=== PATIENT | female | born 1970 | race Caucasian/White ===

== ENCOUNTER 2023-07-19 00:25 | Emergency (ER) | payer OTHER ==
[2023-07-19] MEDS ORDERED: dexAMETHasone 10 MG/ML VIAL ONE (02:20)
[2023-07-19] MEDS ORDERED: METOCLOPRAMIDE 10 MG/2mL INJ ONE (02:20)
[2023-07-19] MEDS ORDERED: DIPHENHYDRAMINE 50 MG/ML VIAL ONE (02:20)
[2023-07-19] MEDS ORDERED: NA CHLORIDE 0.9% 50 ML ONE (02:21)
[2023-07-19] MEDS ORDERED: NA CHLORIDE 0.9% 1,000 ML ONE (02:21)
[2023-07-19 02:39] LABS: Absolute Basophils 0.1 K/uL (0-0.5); Absolute Lymphocytes (CBC) 1.6 K/uL (0.7-4.9); Absolute Monocytes 0.5 K/uL (0.1-1.3); Basophils % 0.6 % (0-1.3); Eosinophils % 0.1 % (0-4.4); Hematocrit 41.2 % (36.0-45.0); Hemoglobin 13.3 g/dL (12.0-15.0); Lymphocytes % 13.1 % (15.3-44.8); MCHC 32.4 g/dL (32.0-36.0); MCV 83.5 fL (80-100); MPV 8.2 fL (7.6-11.3); Monocytes % 4.3 % (3.3-12.3); Neutrophils % 81.9 % (41.7-73.7); Platelets 400 thou/uL (152-406); RBC Red Blood Cell Count 4.94 M/uL (3.86-4.86); Red Cell Distribution Width 14.5 % (12.1-15.2)
[2023-07-19 02:51] LABS: Anion Gap 9.3 mEq/L (5.0-15.0); Magnesium 2.3 mg/dL (1.6-2.4); Potassium 3.3 mEq/L (3.5-5.1); Troponin High Sensitivity 3.4 pg/mL (<58.9)
--- NOTE | 2023-07-19 04:37 | ER ---
Nurse's Notes [facility] Name: Christa Wise Age: 53 yrs Sex: Female : 1970 Arrival Date: 07/19/2023 Time: 00:25 Bed 17 Private MD: Diagnosis: Other headache syndrome;Acute HEADACHE, nausea and vomiting Presentation: 07/18 00:47 Chief complaint: Patient states: headache, high blood pressure, nausea with 2 episodes lg3 of vomiting. Tylenol and ibuprofen taken at 2300 with no relief. Coronavirus screen: Client denies travel out of the [place] in the last 14 days. At this time, the client does not indicate any symptoms associated with coronavirus-19. Ebola Screen: No symptoms or risks identified at this time. Initial Sepsis Screen: Does the patient meet any 2 criteria? No. Patient's initial sepsis screen is negative. Does the patient have a suspected source of infection? No. Patient's initial sepsis screen is negative. Risk Assessment: Do you want to hurt yourself or someone else? Patient reports no desire to harm self or others. Onset of symptoms was July 18, 2023. 00:47 Method Of Arrival: Ambulatory lg3 00:47 Acuity: ANN MARIE 3 lg3 Triage Assessment: 00:49 Headache History: Denies prior headaches. General: Appears in no apparent distress. lg3 uncomfortable, Behavior is calm, cooperative. Pain: Complains of pain in head Pain does not radiate. Pain currently is 10 out of 10 on a pain scale. Pain began 2 hours ago. Also complains of nausea, photophobia. EENT: No deficits noted. No signs and/or symptoms were reported regarding the EENT system. Neuro: No deficits noted. Chong Agitation-Sedation Scale (RASS): 0 - Alert and Calm Level of Consciousness is awake, alert, obeys commands, Oriented to person, place, time, situation, Reports headache that is the "worst ever". Cardiovascular: No deficits noted. Denies chest pain, shortness of breath, Heart tones S1 S2 present Capillary refill < 3 seconds Clubbing of nail beds is absent JVD is absent Patient's skin is warm and dry. Respiratory: No deficits noted. Airway is patent Respiratory effort is even, unlabored, Respiratory pattern is regular, symmetrical. GI: No deficits noted. Abdomen is round non-distended, obese, Reports nausea, vomiting. : No deficits noted. No signs and/or symptoms were reported regarding the genitourinary system. Derm: No deficits noted. No signs and/or symptoms reported regarding the dermatologic system. Skin is intact, is healthy with good turgor, Skin is dry, Skin is normal, Skin temperature is warm. Musculoskeletal: No deficits noted. No signs and/or symptoms reported regarding the musculoskeletal system. Circulation, motion, and sensation intact. Range of motion: intact in all extremities. 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 - Infectious Disease History:: Denies. - Social history:: Smoking status: Patient denies any tobacco usage or history of. Patient/guardian denies using alcohol, street drugs. Screenin:54 [facility] ED Fall Risk Assessment (Adult) History of falling in the last 3 months, lg3 including since admission No falls in past 3 months (0 pts) Confusion or Disorientation No (0 pts) Intoxicated or Sedated No (0 pts) Impaired Gait No (0 pts) Mobility Assist Device Used No (0 pt) Altered Elimination No (0 pt) Score/Fall Risk Level 0 - 2 = Low Risk Oriented to surroundings, Maintained a safe environment, Educated pt \\T\\ family on fall prevention, incl call for assistance when getting out of bed, Assessed \\T\\ reinforced patient's understanding of fall precautions. Abuse screen: Denies threats or abuse. Denies injuries from another. Nutritional screening: No deficits noted. Tuberculosis screening: No symptoms or risk factors identified. Assessment: 00:53 General: see triage assessment. Pain: Complains of pain in head Pain does not radiate. lg3 Pain currently is 10 out of 10 on a pain scale. Also complains of nausea, photophobia. 04:07 Reassessment: Patient and/or family updated on plan of care and expected duration. Pain vc1 level reassessed. Patient is alert, oriented x 3, equal unlabored respirations, skin warm/dry/pink. Patient states feeling better. Patient states symptoms have improved. 04:55 Reassessment: Patient appears in no apparent distress at this time. No changes from vc1 previously documented assessment. Patient and/or family updated on plan of care and expected duration. Pain level reassessed. Patient is alert, oriented x 3, equal unlabored respirations, skin warm/dry/pink. Vital Signs: 00:47 BP 166 / 90; Pulse 73; Resp 16 S; Temp 98(TE); Pulse Ox 97% on R/A; Weight 63.5 kg (R); lg3 Height 5 ft. 0 in. (R); Pain 10/10; 02:30 BP 156 / 89; Pulse 66; Resp 15; Pulse Ox 98% ; vc1 03:30 BP 140 / 74; Pulse 62; Resp 15; Pulse Ox 95% ; vc1 04:30 BP 136 / 79; Pulse 63; Resp 17; Pulse Ox 94% ; vc1 00:47 Body Mass Index 27.34 (63.50 kg, 152.4 cm) lg3 00:47 Pain Scale: Adult lg3 ED Course: 00:28 Patient arrived in ED. jj6 00:43 Maria Dolores Cheema FNP-C is PHCP. kb 00:43 Ge Castaneda MD is Attending Physician. kb 00:49 Triage completed. lg3 00:49 Arm band placed on right wrist. lg3 00:54 Patient taken to lobby, ambulatory, steady gait. lg3 00:54 Patient has correct armband on for positive identification. lg3 01:39 XRAY Chest (1 view) In Process Unspecified. EDMS 02:10 CT Head Brain wo Cont In Process Unspecified. EDMS 02:17 Allyn Crespo, RN is Primary Nurse. vc1 04:56 Provided Education on: dont drive with [employer]. vc1 04:56 No provider procedures requiring assistance completed. IV discontinued, intact, vc1 bleeding controlled, No redness/swelling at site. Pressure dressing applied. Administered Medications: 02:44 Drug: NS 0.9% IV 1000 ml IV at 1000 ml once Route: IV; Rate: 1000 ml; Site: right vc1 antecubital; 04:57 Follow up: IV Status: Completed infusion; IV Intake: 1000ml vc1 02:44 Drug: metoCLOPramide IVP 10 mg IVP once; over 1 to 2 minutes Route: IVP; Site: right vc1 antecubital; 04:14 Follow up: Response: No adverse reaction; Marked relief of symptoms vc1 02:44 Drug: diphenhydrAMINE IVP 12.5 mg IVP once Route: IVP; Site: right antecubital; vc1 04:14 Follow up: Response: No adverse reaction; Marked relief of symptoms vc1 02:45 Drug: Decadron - Dexamethasone IVP 10 mg IVP once Route: IVP; Site: right antecubital; vc1 04:14 Follow up: Response: No adverse reaction; Marked relief of symptoms vc1 Medication: 04:14 VIS not applicable for this client. vc1 Intake: 04:57 IV: 1000ml; Total: 1000ml. vc1 Outcome: 04:36 Discharge ordered by . sp4 04:56 Discharged to home ambulatory, with family, vc1 04:56 Condition: good 04:56 Discharge instructions given to patient, Instructed on discharge instructions, follow up and referral plans. medication usage, Demonstrated understanding of instructions, follow-up care, medications, Prescriptions given X 2, 05:07 Patient left the ED. vc1 Signatures: Dispatcher [employer] EDMaria Dolores Rodriguez, EFFIE ROMANO-Carol Pace RN RN lg3 Seda Uriarte jj6 Allyn Crespo RN RN vc1 Ge Castaneda MD MD sp4
--- NOTE | 2023-07-19 04:37 | EDPHYS ---
Physician Documentation [facility] Name: Christa Wise Age: 53 yrs Sex: Female : 1970 Arrival Date: 07/19/2023 Time: 00:25 Bed 17 Private MD: ED Physician Ge Castaneda HPI: 07/18 01:39 This 53 yrs old Female presents to ER via Ambulatory with complaints of High Blood kb Pressure, Headache, Nausea/Vomiting, PT STATES BP WAS 189/92. 01:39 Pt is a 53 year old female who presents for headache that started around 1700. Since kb onset she has had 3 episodes of vomiting and her blood pressure has been high. States she has a history of migraines. Has taken tylenol and ibuprofen without relief. States she is from [place] so the cause could be do to the change in atmosphere. 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 - Infectious Disease History:: Denies. - Social history:: Smoking status: Patient denies any tobacco usage or history of. Patient/guardian denies using alcohol, street drugs. ROS: 01:39 Constitutional: As per HPI kb Exam: 01:39 Constitutional: This is a well developed, well nourished patient who is awake, alert, kb and in no acute distress. Head/Face: Normocephalic, atraumatic. Eyes: Pupils equal round and reactive to light, extra-ocular motions intact. Lids and lashes normal. Conjunctiva and sclera are non-icteric and not injected. Cornea within normal limits. Periorbital areas with no swelling, redness, or edema. ENT: Moist Mucous membranes Cardiovascular: Regular rate Respiratory: Respirations even and unlabored. No increased work of breathing. Talking in full sentences Abdomen/GI: Soft, non-tender. No distention Skin: Warm, dry with normal turgor. Normal color. MS/ Extremity: Pulses equal, no cyanosis. Neurovascular intact. Full, normal range of motion. Neuro: Awake and alert, GCS 15, oriented to person, place, time, and situation. Moves all extremities. Normal gait. Vital Signs: 00:47 BP 166 / 90; Pulse 73; Resp 16 S; Temp 98(TE); Pulse Ox 97% on R/A; Weight 63.5 kg (R); lg3 Height 5 ft. 0 in. (R); Pain 10/10; 02:30 BP 156 / 89; Pulse 66; Resp 15; Pulse Ox 98% ; vc1 03:30 BP 140 / 74; Pulse 62; Resp 15; Pulse Ox 95% ; vc1 04:30 BP 136 / 79; Pulse 63; Resp 17; Pulse Ox 94% ; vc1 00:47 Body Mass Index 27.34 (63.50 kg, 152.4 cm) lg3 00:47 Pain Scale: Adult lg3 MDM: 00:33 Patient medically screened. kb 01:41 Data reviewed: vital signs, nurses notes. kb 04:28 ED course: EXAM: XR Chest, 1 View CLINICAL HISTORY: The patient is 53 years old and is sp4 Female; DYSPNEA TECHNIQUE: Frontal view of the chest. COMPARISON: No relevant prior studies available. FINDINGS: Lungs: Unremarkable. No consolidation. Pleural space: Unremarkable. No pneumothorax. Heart: Unremarkable. Mediastinum: Unremarkable. Normal mediastinal contour. Bones/joints: No acute findings. IMPRESSION: No acute findings in the chest. . 04:28 ED course: TECHNIQUE: Noncontrast CT head. All CT scans at this facility use dose sp4 modulation, iterative reconstruction, and/or weight based dosing when appropriate to reduce radiation dose to as low as reasonably achievable. COMPARISON: None. FINDINGS: Parenchyma: No acute hemorrhage, large territorial infarction, or mass effect. Ventricles and extra-axial spaces: Appropriate for age. Visualized paranasal sinuses: Clear. Mastoid air cells: Clear. Bones: No acute focal abnormality. Additional comment: None. IMPRESSION: No acute intracranial findings. 04:34 Differential diagnosis: hypertensive crisis, Malignant HTN, intracerebral hemorrhage. sp4 Data reviewed: lab test result(s), EKG, radiologic studies, CT scan, plain films. ED course: There is improvement in headache. Patient stable for discharge home. 07/18 00:48 Order name: Basic Metabolic Panel; Complete Time: 04:26 kb 07/18 00:48 Order name: CBC with Diff; Complete Time: 04:26 kb 07/18 00:48 Order name: Magnesium; Complete Time: 04:26 kb 07/18 00:48 Order name: Troponin HS; Complete Time: 04:26 kb 07/18 00:48 Order name: XRAY Chest (1 view) kb 07/18 00:48 Order name: CT Head Brain wo Cont kb 07/18 00:48 Order name: Cardiac monitoring; Complete Time: 02:45 kb 07/18 00:48 Order name: EKG - Nurse/Tech; Complete Time: 02:45 kb 07/18 00:48 Order name: IV Saline Lock; Complete Time: 02:45 kb 07/18 00:48 Order name: Labs collected and sent; Complete Time: 02:45 kb 07/18 00:48 Order name: O2 Per Protocol; Complete Time: 02:45 kb 07/18 00:48 Order name: O2 Sat Monitoring; Complete Time: 02:45 kb Administered Medications: 02:44 Drug: NS 0.9% IV 1000 ml IV at 1000 ml once Route: IV; Rate: 1000 ml; Site: right vc1 antecubital; 04:57 Follow up: IV Status: Completed infusion; IV Intake: 1000ml vc1 02:44 Drug: metoCLOPramide IVP 10 mg IVP once; over 1 to 2 minutes Route: IVP; Site: right vc1 antecubital; 04:14 Follow up: Response: No adverse reaction; Marked relief of symptoms vc1 02:44 Drug: diphenhydrAMINE IVP 12.5 mg IVP once Route: IVP; Site: right antecubital; vc1 04:14 Follow up: Response: No adverse reaction; Marked relief of symptoms vc1 02:45 Drug: Decadron - Dexamethasone IVP 10 mg IVP once Route: IVP; Site: right antecubital; vc1 04:14 Follow up: Response: No adverse reaction; Marked relief of symptoms vc1 Disposition: 04:35 Co-signature as Attending Physician, Ge Castaneda MD I agree with the assessment sp4 and plan of care. I reviewed the patient's care provided by Advanced Practice Provider \T\ agree w/ the diagnosis \T\ care plan. I personally saw the pt \T\ performed a substantive portion of the visit, incldng all aspects of the (History/Exam/Medical Decision Making). Disposition Summary: 07/19/23 04:36 Discharge Ordered Notes: Location: Home sp4 Problem: new sp4 Symptoms: have improved sp4 Condition: Stable sp4 Diagnosis - Other headache syndrome sp4 - Acute HEADACHE, nausea and vomiting sp4 Followup: sp4 - With: Private Physician - When: 7 - 10 days - Reason: Recheck today's complaints Discharge Instructions: - Discharge Summary Sheet sp4 - General Headache Without Cause sp4 Forms: - Patient Portal Instructions sp4 Prescriptions: - Fioricet 50-300-40 mg Oral capsule - take 1 capsule ORAL route every 8 hours PRN headache; 30 capsule; Refills: 0, sp4 Product Selection Permitted - ondansetron 8 mg Oral Tablet,disintegrating - take 1 tablet ORAL route every 8 hours PRN nausea; 30 tablet; Refills: 0, sp4 Product Selection Permitted Signatures: Dispatcher [employer] EDMS Maria Dolores Cheema, EFFIE BOARD WORKER-Carol Pace RN RN lg3 Allyn Crespo RN RN vc1 Ge Castnaeda MD MD sp4 Corrections: (The following items were deleted from the chart) 00:49 00:49 Chest Single View+RAD.RAD.BRZ ordered. EDMS EDMS 00:49 00:49 Head Brain Wo Cont+CT.RAD.BRZ ordered. EDMS EDMS
[2023-07-19 05:54] VITALS: BP 136/79; TEMP 98; O2SAT 94
--- NOTE | 2023-07-19 21:05 | RAD REPORT ---
EXAM DESCRIPTION: RAD - Chest Single View - 07/19/2023 1:37 am CLINICAL HISTORY: The patient is 53 years old and is Female; DYSPNEA TECHNIQUE: Frontal view of the chest. COMPARISON: No relevant prior studies available. FINDINGS: Lungs: Unremarkable. No consolidation. Pleural space: Unremarkable. No pneumothorax. Heart: Unremarkable. Mediastinum: Unremarkable. Normal mediastinal contour. Bones/joints: No acute findings. IMPRESSION: No acute findings in the chest. Electronically signed by: Damien Schuster MD 07/19/2023 02:00 AM CDT Due to temporary technical issues with the PACS/Fluency reporting system, reports are being signed by the in house radiologists without review as a courtesy to insure prompt reporting. The interpreting radiologist is fully responsible for the content of the report.
--- NOTE | 2023-07-19 21:07 | RAD REPORT ---
EXAM DESCRIPTION: CT - Head Brain Wo Cont - 07/19/2023 6:54 am RadLex: CT HEAD WITHOUT IV CONTRAST CLINICAL HISTORY: 53 years Female; Dizziness;Headache; Bed: TECHNIQUE: Noncontrast CT head. All CT scans at this facility use dose modulation, iterative reconstruction, and/or weight based dosi ng when appropriate to reduce radiation dose to as low as reasonably achievable. COMPARISON: None. FINDINGS: Parenchyma: No acute hemorrhage, large territorial infarction, or mass effect. Ventricles and extra-axial spaces: Appropriate for age. Visualized paranasal sinuses: Clear. Mastoid air cells: Clear. Bones: No acute focal abnormality. Additional comment: None. IMPRESSION: No acute intracranial findings. Electronically signed by: Kimi Arriaga MD 07/19/2023 02:59 AM CDT Due to temporary technical issues with the PACS/Fluency reporting system, reports are being signed by the in house radiologists without review as a courtesy to insure prompt reporting. The interpreting radiologist is fully responsible for the content of the report.
== END 2023-07-19 05:07 | disposition home or self-care (01) ==
LOC: ER 00:25
DX: G44.89 Other headache syndrome (principal); R11.2 Nausea with vomiting, unspecified
CPT/HCPCS: 96361; 93005; 85025; 80048; 36415; 83735; 84484; 70450; 71045; 96375; 96374; 99284; J2765; J1200; J1100; J7030